=== PATIENT | male | born 1975 | race African-American/Black ===

== ENCOUNTER → 2019-03-31 | Outpatient (CLI) | payer OTHER ==
[~2019-03-31] MED LIST: CONTRAST GIVEN. MC PRN; IOHEXOL 300 MG/ML 100ML VIAL. IV ONE
--- NOTE | 2019-03-31 11:11 | RAD ---
CT of the chest with contrast, 03/31/2019: HISTORY: Chest wall mass Multidetector CT imaging was performed following an IV bolus injection of iodinated contrast material. Multiplanar reconstructions were produced. The aorta is unremarkable. No mediastinal mass or adenopathy is seen. There are calcified subcarinal and left hilar lymph nodes compatible with old granulomatous disease. A tiny calcified granuloma is present posteriorly in the left base. A small focus of mild pleural thickening is also noted posteriorly in the left base. The right lung is clear. There is no evidence of pleural fluid. There are mild scattered spurs in the thoracic spine. No destructive bony lesion is seen. No chest wall mass is evident. IMPRESSION: 1. Old healed granulomatous disease in the chest. 2. Small focus of pleural thickening posteriorly in the left chest most likely representing a scar. 3. No significant chest wall abnormality is detected. PQRS Compliance Statement: One or more of the following individualized dose reduction techniques were utilized for this examination: 1. Automated exposure control 2. Adjustment of the mA and/or kV according to patient size 3. Use of iterative reconstruction technique Electronically signed by: Fran Luceor MD (03/31/2019 11:07 AM) [facility]
== END | disposition home or self-care (01) ==
LOC: CT 08:38
PROVIDERS: ATTEND Family Medicine
DX: J92.9 Pleural plaque without asbestos (principal); J84.10 Pulmonary fibrosis, unspecified; I89.8 Other specified noninfective disorders of lymphatic vessels and lymph nodes; M46.04 Spinal enthesopathy, thoracic region
CPT/HCPCS: 71260; Q9967